=== PATIENT | female | born 1975 | race Caucasian/White ===

== ENCOUNTER 2019-10-13 02:38 | Emergency (ER) | payer OTHER, SELFPAY ==
[2019-10-13 02:50] VITALS: BP 132/88; PULSE 72; RESP 18; TEMP 36.7; O2SAT 99
[2019-10-13] MEDS: MORPHINE SULFATE 10 MG/ML AMP 4 MG IM (03:12)
--- NOTE | 2019-10-13 03:36 | ED.GENADULT ---
HPI - General Adult General Chief complaint: Unspecified Stated complaint: PAIN - BROKEN L LEG Time Seen by Provider: 10/13/19 02:41 History of Present Illness HPI narrative: Patient is a 44-year-old female who presents ER with left lower extremity pain. Patient was ice skating earlier today when she fell and suffered a distal tibial fracture and proximal fibula fracture. She was seen at [facility]. They wrote a prescription for [place] that was sent to a [facility] pharmacy but they were unable to fill the order as they ran out of the medication. The medicine was then sent to another pharmacy which was closed when they arrived. Patient has not had medication for several hours. Last dose of medication was Tylenol 2 hours prior to arrival. Patient has no new numbness or tingling. No new injury. Related Data Allergies Allergy/AdvReac Type Severity Reaction Status Date / Time No Known Allergies Allergy Verified 10/26/14 11:12 Review of Systems Constitutional: Constitutional: Denies chills, Denies fever(s) and Denies weakness Musculoskeletal: Comments: Left lower extremity pain due to fracture. Neurologic: Denies numbness and Denies weakness PMFSH Past Medical History Medical History (Updated 10/13/19 @ 03:40 by Michele Chaidez MD) No pertinent past medical history Tubal ligation evaluation Social History Social History (Updated 10/13/19 @ 03:38 by Michele Chaidez MD) Smoking status: Light tobacco smoker Exam Narrative: Exam Narrative: GENERAL: Well-appearing, well-nourished, and in no acute distress. HEAD: Normocephalic, atraumatic. EXTREMITIES: Left lower extremity in long-leg OCL with Elmer wraps. Normal movement of the toes with brisk capillary refill and normal sensation. SKIN: Warm, dry, no rash. NEURO: No focal deficits. Alert and oriented x3. PSYCH: Normal mood and affect. Course Course Emergency Course: Morphine given here. Will prescribe Brookfield and sent to a 24-hour pharmacy as tomorrow is a holiday and I am unsure when she will be able to obtain her other prescription. Vital Signs Vital signs: Vital Signs Temperature 98.0 F 10/13/19 02:50 Pulse Rate 72 10/13/19 02:50 Respiratory Rate 18 10/13/19 02:50 Blood Pressure 132/88 10/13/19 02:50 Pulse Oximetry 99 10/13/19 02:50 Temperature 98.0 F 10/13/19 02:50 Pulse Rate 72 10/13/19 02:50 Respiratory Rate 18 10/13/19 02:50 Blood Pressure 132/88 10/13/19 02:50 Pulse Oximetry 99 10/13/19 02:50 Medical Decision Making Vital Signs Vital Signs: Vital Signs Temperature 98.0 F 10/13/19 02:50 Pulse Rate 72 10/13/19 02:50 Respiratory Rate 18 10/13/19 02:50 Blood Pressure 132/88 10/13/19 02:50 Pulse Oximetry 99 10/13/19 02:50 Temperature 98.0 F 10/13/19 02:50 Pulse Rate 72 10/13/19 02:50 Respiratory Rate 18 10/13/19 02:50 Blood Pressure 132/88 10/13/19 02:50 Pulse Oximetry 99 10/13/19 02:50 Discharge Plan Discharge Clinical Impression: Fracture of lower extremity Qualifiers: Encounter type: subsequent encounter Fracture type: closed Laterality: left Patient Disposition: Home, Self-Care Condition: Stable Instructions: Leg Fracture (ED) Prescriptions: New hydrocodone-acetaminophen 5-325 mg tablet 1 tablet PO Q6H PRN (Reason: pain) Qty: 20 RF: 0 Follow-up/Referrals: Kj,HANNAH Brumfield [Primary Care Provider] - 1 Week
[2019-10-13 03:59] VITALS: BP 133/80; PULSE 79; RESP 16; TEMP 36.6; O2SAT 100
== END 2019-10-13 04:01 | disposition home or self-care (01) ==
LOC: ANHED 03:46
PROVIDERS: Emergency Provider Emergency Medicine; PCP Physician Assistant
DX: S82.302A Unspecified fracture of lower end of left tibia, initial encounter for closed fracture (principal); S82.832A Other fracture of upper and lower end of left fibula, initial encounter for closed fracture; V00.211A Fall from ice-skates, initial encounter; F17.210 Nicotine dependence, cigarettes, uncomplicated
CPT/HCPCS: 96372; 99283; J2270

== ENCOUNTER → 2019-11-25 18:07 | Outpatient (CLI) | payer OTHER, SELFPAY ==
--- NOTE | ~2019-11-25 | XR_ITS ---
EXAMINATION: XR tibia fibula LT 2V EXAM DATE: 11/25/2019 18:29 INDICATION: Subsequent visit for known closed fracture(s) follow-up of the left tibia, fibula. TECHNIQUE: Left tibia/fibula frontal and lateral projections obtained and reviewed. There is no prio r study for comparison. FINDINGS: There is a left tibial intramedullary lisa bridging a spiral fracture through the distal olive physis. Fracture margin is indistinct, early evidence of routine healing. Hardware is intact, alignme nt is near-anatomic. There is a proximal fibular metaphyseal oblique fracture with a few millimeters of displacement, difficult to appreciate any appreciable callus formation at this time. IMPRESSION: Internally fixed left tibial fracture with indistinct fracture margin could indicate ear ly routine healing. Proximal fibular metaphyseal fracture. Reviewed, dictated and finalized at location A. IMPRESSION: Internally fixed left tibial fracture with indistinct fracture mar gin could indicate early routine healing. Proximal fibular metaphyseal fracture .
== END ==
DX: S82.392D Other fracture of lower end of left tibia, subsequent encounter for closed fracture with routine healing (principal)
CPT/HCPCS: 73590

== ENCOUNTER → 2022-07-06 16:26 | Outpatient (CLI) | payer BC, SELFPAY ==
--- NOTE | ~2022-07-06 | MM_ITS ---
EXAMINATION: MM screening teresa BI w dania HISTORY: Screening mammogram TECHNIQUE: Craniocaudal and mediolateral oblique 3-D tomosynthesis images were obtained and synthetic 2-D images were generated. CAD analysis was submitted and interpreted. COMPARISON: 09/02/2018 diagnostic right mammogram and limited right breast ultrasound 08/14/2018 bilateral screening mammogram BREAST PARENCHYMAL COMPOSITION: There are scattered areas of fibroglandular density. FINDINGS: There is no evidence of suspicious mass, calcification, or architectural distortion to sugg est malignancy in either breast. There has been no suspicious interval change. IMPRESSION: 1. No mammographic evidence of malignancy. 2. Recommend routine screening mammography in one year. BI-RADS Category 1: Negative Reviewed, dictated and finalized at location A. AGE ADMINISTRATOR
== END ==
PROVIDERS: PCP Physician Assistant; Visit Provider Physician Assistant
DX: Z12.31 Encounter for screening mammogram for malignant neoplasm of breast (principal)
CPT/HCPCS: 77063; 77067

== ENCOUNTER 2024-08-14 15:30 | Outpatient (CLI) | payer BC, SELFPAY ==
--- NOTE | ~2024-08-14 | XR_ITS ---
EXAMINATION: XR chest 2V 08/14/2024 15:42 INDICATION: Acute cough PROCEDURE: 2 view chest COMPARISON: No prior studies for comparison. FINDINGS: The lungs are clear. The cardiomediastinal silhouette is within normal limits. There are no pleural effusions. There is no pneumothorax suspected. IMPRESSION: 1: NO ACUTE CARDIOPULMONARY DISEASE. Reviewed, dictated and finalized at location B. EMIC ADVISEMENT DIRECTOR
== END 2024-08-14 15:31 | disposition home or self-care (01) ==
PROVIDERS: PCP Physician Assistant; Visit Provider Physician Assistant
DX: R05.1 Acute cough (principal)
CPT/HCPCS: 71046